=== PATIENT | female | born 1985 | race Two or more races ===

== ENCOUNTER 2017-03-04 08:10 | Day surgery (SDC) | payer MEDICAID, SELFPAY ==
[2017-03-04] MEDS ORDERED: Sodium Chloride 0.9% 10 ML Syringe FLUSH PRN (08:15)
[2017-03-04] MEDS ORDERED: Lactated Ringers 1,000 ML IV SCH (08:15)
[2017-03-04] MEDS ORDERED: Lidocaine 2% 100 MG/5 ML Syringe IVPUSH ONE (09:30)
[2017-03-04] MEDS ORDERED: Lactated Ringers 1,000 ML IV ONE (09:30)
[2017-03-04] MEDS ORDERED: Propofol 200 MG/20 ML SDV IV ONE (09:30)
[2017-03-04] MEDS ORDERED: Midazolam 1 MG/ML 2 ML SDV IV ONE (09:30)
--- NOTE | 2017-03-04 10:05 | PCM.OPNOTE ---
- General Post-Op/Procedure Note Date of Surgery/Procedure: 03/04/17 Operative Procedure(s): egd with bx Findings: gastritis esophagitis hiatal hernia Pre Op Diagnosis: epigastric pain hx of H pylori Post-Op Diagnosis: gastritis. esophagitis Anesthesia Technique: CHRISTIANO Primary Surgeon: Kev Rogers Anesthesia Provider: Frank Stokes Pathology: stomach and esophagus Complications: None Condition: Good Free Text/Narrative:: see dictation
[2017-03-04 10:56] VITALS: BP 137/97
--- NOTE | 2017-03-04 13:35 | OR ---
DATE OF OPERATION: 03/04/2017 SURGEON: Kev Rogers MD PROCEDURE PERFORMED: Esophagogastroduodenoscopy with cold forceps biopsy. PREOPERATIVE DIAGNOSIS: Epigastric pain, history of Helicobacter pylori infection. POSTOPERATIVE DIAGNOSIS: Esophagitis, hiatal hernia, and gastritis. INDICATIONS FOR PROCEDURE: This is a 31-year-old white female, who was referred with a history of epigastric discomfort. She has been recently treated for Helicobacter pylori. Pain has persisted. She is wondering if this is cleared. DESCRIPTION OF OPERATION: After an excellent IV sedation was administered, the bite block was inserted. The flexible endoscope was passed without difficulty down the patient's esophagus into the stomach. Stomach was insufflated. Scope was passed through the pylorus to the second portion of the duodenum and slowly withdrawn. The following findings were noted. Duodenum was unremarkable. Stomach; small hiatal hernia, mild gastritis, biopsies were taken. Distal esophagus, mild erythema, biopsies were taken. The remainder of the esophageal exam was unremarkable. Stomach was deflated, scope was removed. The patient tolerated the procedure well, and was taken to recovery room in good condition. /[id number] /VINICIOL
== END 2017-03-04 11:40 | disposition home or self-care (01) ==
LOC: FB.SDS 08:10
PROVIDERS: ATTEND Surgery
DX: K20.9 Esophagitis, unspecified (principal); K29.70 Gastritis, unspecified, without bleeding; E11.9 Type 2 diabetes mellitus without complications; E66.9 Obesity, unspecified; Z68.30 Body mass index [BMI] 30.0-30.9, adult; E78.5 Hyperlipidemia, unspecified; J45.909 Unspecified asthma, uncomplicated; G47.33 Obstructive sleep apnea (adult) (pediatric); Z86.19 Personal history of other infectious and parasitic diseases
CPT/HCPCS: 43239; 82962; 88305; 88313; 88342; J2250; J2704; J7120

== ENCOUNTER 2021-03-10 20:43 | Emergency (ER) | payer MEDICAID ==
[2021-03-10] MEDS ORDERED: Ondansetron 4 MG Tab.DIS PO ONE (20:44)
[2021-03-10 21:06] VITALS: PULSE 97
--- NOTE | 2021-03-10 21:21 | EDM.PDOC ---
ED HPI GENERAL MEDICAL PROBLEM - General Chief Complaint: Gastrointestinal Problem Stated Complaint: VOMITING Time Seen by Provider: 03/10/21 21:05 Source of Information: Reports: Patient History Limitations: Reports: No Limitations - History of Present Illness INITIAL COMMENTS - FREE TEXT/NARRATIVE: Patient presented to the ED because of N/V/D for 3 days. She has been having c hronic diarrhea ever since she was on Metformin 1gm BID 14 years ago. denies any abdominal pain except for bloating. there is no fever/chills,cough/cold - Related Data Allergies Allergy/AdvReac Type Severity Reaction Status Date / Time Iodinated Contrast Media AdvReac Mild Nausea and Verified 03/10/21 21:08 Vomiting ENVIRONMENTAL Allergy Mild Respiratory Uncoded 03/10/21 21:09 Problems Home Meds: Home Meds metFORMIN [Glucophage XR] 500 mg PO DAILY 01/20/14 [History] Albuterol Sulfate [Albuterol Sulfate HFA] 2 puff IH Q6HR PRN 10/22/14 [History] Venlafaxine [Effexor XR] 150 mg PO DAILY 03/03/17 [History] ARIPiprazole [Abilify] 20 mg PO DAILY 03/10/21 [History] Aspirin [Halfprin] 81 mg PO DAILY 03/10/21 [History] Dapagliflozin Propanediol [Farxiga] 5 mg PO DAILY 03/10/21 [History] Ezetimibe [Zetia] 10 mg PO DAILY 03/10/21 [History] Fenofibrate,Micronized [Fenofibrate] 200 mg PO DAILY 03/10/21 [History] Liraglutide [Victoza 3-Juan] 4.8 mg SQ DAILY 03/10/21 [History] Metoprolol Succinate [Toprol XL] 25 mg PO DAILY 03/10/21 [History] Rosuvastatin [Crestor] 5 mg PO DAILY 03/10/21 [History] hydrOXYzine pamoate [Vistaril] 25 mg PO Q6H #90 cap 03/10/21 [Rx] lisinopriL [Lisinopril] 20 mg PO DAILY 03/10/21 [History] Past Medical History Cardiovascular History: Reports: High Cholesterol Respiratory History: Reports: Asthma Gastrointestinal History: Reports: GERD, Other (See Below) Other Gastrointestinal History: HX OF H-PYLORI BEEF GRADER History: Reports: Polycystic Ovaries, Other (See Below) Other BEEF GRADER History: CERVICITIS, ENDOCERVICITIS, OVARIAN CYST Psychiatric History: Reports: Depression Endocrine/Metabolic History: Reports: Diabetes, Type II, Obesity/BMI 30+ - Past Surgical History Female Surgical History: Reports: D&C, Hysterectomy, Salpingo-Oophorectomy Social & Family History - Family History Family Medical History: No Pertinent Family History - Caffeine Use Caffeine Use: Reports: Soda ED ROS GENERAL - Review of Systems Review Of Systems: See Below Constitutional: Reports: No Symptoms HEENT: Reports: No Symptoms Respiratory: Reports: No Symptoms Cardiovascular: Reports: No Symptoms Endocrine: Reports: No Symptoms GI/Abdominal: Reports: Diarrhea, Nausea, Vomiting : Reports: No Symptoms Musculoskeletal: Reports: No Symptoms, Neck Pain, Shoulder Pain Skin: Reports: No Symptoms, Cyanosis, Jaundice Neurological: Reports: No Symptoms Psychiatric: Reports: No Symptoms ED EXAM, GI/ABD - Physical Exam Exam: See Below Exam Limited By: No Limitations General Appearance: Alert, No Apparent Distress Ears: Normal External Exam, Normal Canal, Hearing Grossly Normal Nose: Normal Inspection, Normal Mucosa, No Blood Throat/Mouth: Normal Inspection, Normal Lips, Normal Teeth Head: Atraumatic, Normocephalic Neck: Normal Inspection, Supple, Non-Tender, Full Range of Motion Respiratory/Chest: No Respiratory Distress, Lungs Clear, Normal Breath Sounds Cardiovascular: Normal Peripheral Pulses, Regular Rate, Rhythm, No Edema GI/Abdominal Exam: Soft, Non-Tender, Other (hyperactibe BS) Back Exam: Normal Inspection, Full Range of Motion Extremities: Normal Inspection, Normal Range of Motion Course - Vital Signs Last Recorded V/S: Last Vital Signs Temp 36.8 C 03/10/21 21:00 Pulse 97 03/10/21 21:30 Resp 18 03/10/21 21:30 BP 149/101 H 03/10/21 21:30 Pulse Ox 98 03/10/21 21:30 - Orders/Labs/Meds Meds: Medications Discontinued Medications Generic Name Dose Route Start Last Admin Trade Name Freq PRN Reason Stop Dose Admin Ondansetron HCl 16 mg 03/10/21 20:44 Ondansetron 4 Mg Tab.Dis PO 03/10/21 20:45 .STK-MED ONE Departure - Departure Time of Disposition: 21:20 Disposition: Home, Self-Care 01 Condition: Good Clinical Impression: Nausea & vomiting, Chronic diarrhea - Discharge Information Prescriptions: hydrOXYzine pamoate [Vistaril] 25 mg PO Q6H #90 cap Instructions: Nausea and Vomiting, Adult, [id number], Chronic Diarrhea Referrals: Jailyn Williamson ADVICE CLERK [Primary Care Provider] - Forms: ED Department Discharge Additional Instructions: Please read discharge instructions on nausea/vomiting/diarrhea Zofran ODT 4 mg every 4 hours as needed for nausea Hydroxyzine 25 mg ,1-2 tablets every 6 hours as needed for nausea/anxiety and sleep Follow up as needed Sepsis Event Note (ED) - Evaluation Sepsis Screening Result: No Definite Risk
[2021-03-10 23:01] VITALS: BP 149/101
== END 2021-03-10 21:35 | disposition home or self-care (01) ==
LOC: FB.ED 20:43
DX: K52.9 Noninfective gastroenteritis and colitis, unspecified (principal); R11.2 Nausea with vomiting, unspecified; E78.00 Pure hypercholesterolemia, unspecified; K21.9 Gastro-esophageal reflux disease without esophagitis; E11.9 Type 2 diabetes mellitus without complications; E66.9 Obesity, unspecified; Z68.30 Body mass index [BMI] 30.0-30.9, adult; Z79.82 Long term (current) use of aspirin; Z79.899 Other long term (current) drug therapy; Z91.048 Other nonmedicinal substance allergy status; Z91.041 Radiographic dye allergy status
CPT/HCPCS: 99283; A9270-GY

== ENCOUNTER 2021-10-07 20:48 | Emergency (ER) | payer MEDICAID ==
[2021-10-07 21:00] VITALS: BP 173/104; PULSE 88
== END 2021-10-07 23:07 | disposition home or self-care (01) ==
LOC: FB.ED 20:48
DX: F32.A Depression, unspecified (principal); E78.00 Pure hypercholesterolemia, unspecified; I10 Essential (primary) hypertension; E11.9 Type 2 diabetes mellitus without complications; E66.9 Obesity, unspecified; Z68.35 Body mass index [BMI] 35.0-35.9, adult; Z91.041 Radiographic dye allergy status; Z91.09 Other allergy status, other than to drugs and biological substances; Z79.899 Other long term (current) drug therapy; Z79.82 Long term (current) use of aspirin
CPT/HCPCS: 99283

== ENCOUNTER 2022-02-22 11:06 | Emergency (ER) | payer MEDICAID ==
[2022-02-22 14:30] VITALS: BP 138/95; PULSE 85
== END 2022-02-22 13:15 | disposition home or self-care (01) ==
LOC: FB.ED 11:06
DX: F33.1 Major depressive disorder, recurrent, moderate (principal); R45.851 Suicidal ideations; K21.9 Gastro-esophageal reflux disease without esophagitis; E78.00 Pure hypercholesterolemia, unspecified; I10 Essential (primary) hypertension; E11.9 Type 2 diabetes mellitus without complications; E66.9 Obesity, unspecified; Z91.041 Radiographic dye allergy status; Z86.16 Personal history of COVID-19; Z79.899 Other long term (current) drug therapy; Z79.82 Long term (current) use of aspirin; Z91.19 Patient's noncompliance with other medical treatment and regimen; Z68.35 Body mass index [BMI] 35.0-35.9, adult; Z91.09 Other allergy status, other than to drugs and biological substances
CPT/HCPCS: 36415; 80307; 81001; 99283; 99284

== ENCOUNTER 2022-04-21 16:28 | Emergency (ER) | payer MEDICAID ==
[2022-04-21] MEDS ORDERED: Sodium Chloride 0.9% 1,000 ML IV SCH (17:00)
[2022-04-21] MEDS ORDERED: Ondansetron 4 MG/2 ML SDV IVPUSH ONE (17:04)
[2022-04-21 17:07] LABS: ESTIMATED GFR 49 mL/min (>60)
[2022-04-21 19:41] VITALS: BP 114/75; PULSE 99
== END 2022-04-21 19:20 | disposition home or self-care (01) ==
LOC: FB.ED 16:28
DX: E86.0 Dehydration (principal); I10 Essential (primary) hypertension; E11.9 Type 2 diabetes mellitus without complications; E78.00 Pure hypercholesterolemia, unspecified; E66.9 Obesity, unspecified; Z68.34 Body mass index [BMI] 34.0-34.9, adult; Z88.6 Allergy status to analgesic agent; Z20.822 Contact with and (suspected) exposure to COVID-19; Z91.048 Other nonmedicinal substance allergy status; Z79.899 Other long term (current) drug therapy
CPT/HCPCS: 36415; 70450; 80053; 82947; 85025; 87635; 93005; 96361; 96374; 99284; J2405; J7030; 93010; U0002

== ENCOUNTER 2022-08-14 02:50 | Emergency (ER) | payer MEDICAID ==
[2022-08-14 03:30] VITALS: BP 105/70; PULSE 74
[2022-08-14] MEDS ORDERED: Ondansetron 4 MG Tab.DIS PO ONE (03:36)
[2022-08-14] MEDS ORDERED: Lactated Ringers 1,000 ML IV ONE (03:36)
[2022-08-14 03:56] LABS: ESTIMATED GFR 73 mL/min (>60)
[2022-08-14 04:03] LABS: HEMOGLOBIN A1C 6.5 % (<5.7)
== END 2022-08-14 05:38 | disposition home or self-care (01) ==
LOC: FB.ED 02:50
DX: I95.1 Orthostatic hypotension (principal); E11.65 Type 2 diabetes mellitus with hyperglycemia; E78.00 Pure hypercholesterolemia, unspecified; I10 Essential (primary) hypertension; E66.9 Obesity, unspecified; Z68.33 Body mass index [BMI] 33.0-33.9, adult; Z91.041 Radiographic dye allergy status; Z88.5 Allergy status to narcotic agent; Z79.82 Long term (current) use of aspirin; Z79.899 Other long term (current) drug therapy
CPT/HCPCS: 36415; 80048; 81001; 83036; 84484; 85027; 96365; 96366; 99284; J7120; Q0162

== ENCOUNTER 2022-08-23 22:24 | Emergency (ER) | payer MEDICAID ==
[2022-08-23] MEDS ORDERED: Sulfamethoxazole/Trimethoprim 800-160 MG Tab PO ONE (22:25)
[2022-08-24 01:38] VITALS: BP 148/90; PULSE 88
== END 2022-08-23 23:27 | disposition home or self-care (01) ==
LOC: FB.ED 22:24
DX: N39.0 Urinary tract infection, site not specified (principal); E78.00 Pure hypercholesterolemia, unspecified; I10 Essential (primary) hypertension; K21.9 Gastro-esophageal reflux disease without esophagitis; E11.9 Type 2 diabetes mellitus without complications; E66.9 Obesity, unspecified; Z68.33 Body mass index [BMI] 33.0-33.9, adult; Z88.5 Allergy status to narcotic agent; Z91.041 Radiographic dye allergy status; Z79.84 Long term (current) use of oral hypoglycemic drugs; Z79.82 Long term (current) use of aspirin; Z79.899 Other long term (current) drug therapy; Z86.16 Personal history of COVID-19
CPT/HCPCS: 81001; 87086; 87088; 99283; A9270; 87186

== ENCOUNTER 2023-02-27 22:39 | Emergency (ER) | payer MEDICAID ==
[2023-02-27] MEDS ORDERED: valACYclovir 500 MG Tab PO ONE (23:17)
[2023-02-28 01:20] VITALS: BP 158/94; PULSE 89
== END 2023-02-27 23:42 | disposition home or self-care (01) ==
LOC: FB.ED 22:39
DX: B02.22 Postherpetic trigeminal neuralgia (principal); E78.00 Pure hypercholesterolemia, unspecified; I10 Essential (primary) hypertension; J45.909 Unspecified asthma, uncomplicated; E11.9 Type 2 diabetes mellitus without complications; E66.9 Obesity, unspecified; Z86.16 Personal history of COVID-19; Z72.0 Tobacco use; Z88.5 Allergy status to narcotic agent; Z91.041 Radiographic dye allergy status; Z91.048 Other nonmedicinal substance allergy status; Z79.899 Other long term (current) drug therapy; Z79.82 Long term (current) use of aspirin; Z79.84 Long term (current) use of oral hypoglycemic drugs
CPT/HCPCS: 99282; A9270

== ENCOUNTER 2023-06-15 05:05 | Emergency (ER) | payer MEDICAID ==
[2023-06-15] MEDS ORDERED: hydrOXYzine HCl 50 MG/ML SDV IM ONE (05:22)
[2023-06-15] MEDS ORDERED: Morphine 10 MG/ML SDV IM ONE (05:22)
[2023-06-15 05:44] LABS: BASOPHILS ABSOLUTE AUTO 0.1 x10-3/uL (0.0-0.1); BASOPHILS PERCENT AUTO 0.6 % (0.2-1.5); EOSINOPHILS ABSOLUTE AUTO 0.3 x10-3/uL (0.0-0.8); EOSINOPHILS PERCENT AUTO 2.5 % (0.6-8.1); HEMATOCRIT 40.7 % (34.2-48.2); HEMOGLOBIN 14.1 g/dL (11.4-15.5); LYMPHOCYTES ABSOLUTE AUTO 2.5 x10-3/uL (1.0-4.4); LYMPHOCYTES PERCENT AUTO 23.7 % (18.4-52.1); MEAN CORPUSCULAR HEMOGLOBIN 31.7 pg (23.9-33.9); MEAN CORPUSCULAR HGB CONC 34.8 g/dL (31.9-34.8); MEAN CORPUSCULAR VOLUME 91.1 fL (76.7-100.5); MEAN PLATELET VOLUME 7.8 fL (7.1-12.4); MONOCYTES ABSOLUTE AUTO 0.5 x10-3/uL (0.3-1.0); MONOCYTES PERCENT AUTO 4.7 % (4.4-15.7); NEUTROPHILS ABSOLUTE AUTO 7.2 x10-3/uL (1.5-6.3); NEUTROPHILS PERCENT AUTO 68.5 % (30.8-76.2); PLATELET COUNT,PLT 311 x10(3)uL (151-488); RED BLOOD CELL COUNT 4.46 x10(6)uL (3.60-5.20); RED CELL DISTRIBUTION WIDTH 14.5 % (12.3-16.5); WHITE BLOOD CELL COUNT,WBC 10.5 x10-3/uL (3.0-10.3)
[2023-06-15 05:46] VITALS: BP 147/97; PULSE 86
[2023-06-15 05:52] LABS: BLOOD UREA NITROGEN,BUN 8 mg/dL (7-18); BUN/CREATININE RATIO 11.4 (9-20); CALCIUM 9.3 mg/dL (8.6-10.2); CARBON DIOXIDE,CO2 27 mmol/L (21-32); CHLORIDE,CL 103 mmol/L (100-110); CREATININE 0.7 mg/dL (0.55-1.02); EST CRCL DRUG DOSING (CG) 80.61 mL/min; ESTIMATED GFR 112 mL/min (>60); GLUCOSE RANDOM 108 mg/dL (80-116); POTASSIUM,K 3.7 mmol/L (3.5-5.3); SODIUM,NA 137 mmol/L (135-145)
[2023-06-15 05:57] LABS: HEMOGLOBIN A1C 6.2 % (<5.7)
[2023-06-15 06:04] LABS: A/G RATIO 0.8; ALANINE AMINOTRANSFERASE,ALT 28 U/L (12-36); ALBUMIN 3.6 g/dL (3.5-5.2); ALKALINE PHOSPHATASE 105 IU/L (56-112); ASPARTATE AMNIOTRANSFERASE,AST 19 IU/L (5-25); BILIRUBIN TOTAL 0.7 mg/dL (0.1-1.3); PROTEIN TOTAL,TP 7.9 g/dL (6.0-8.0)
== END 2023-06-15 05:46 | disposition home or self-care (01) ==
LOC: FB.ED 05:05
DX: M54.32 Sciatica, left side (principal); I10 Essential (primary) hypertension; E78.00 Pure hypercholesterolemia, unspecified; J45.909 Unspecified asthma, uncomplicated; E11.9 Type 2 diabetes mellitus without complications; E66.9 Obesity, unspecified; Z68.31 Body mass index [BMI] 31.0-31.9, adult; Z86.16 Personal history of COVID-19; Z88.5 Allergy status to narcotic agent; Z91.041 Radiographic dye allergy status; Z91.048 Other nonmedicinal substance allergy status; Z79.84 Long term (current) use of oral hypoglycemic drugs; Z79.82 Long term (current) use of aspirin; Z79.899 Other long term (current) drug therapy
CPT/HCPCS: 36415; 80053; 83036; 85025; 85379; 86140; 96372; 99283; J2270; J3410

== ENCOUNTER 2023-09-24 12:09 | Emergency (ER) | payer MEDICAID, OTHER ==
[2023-09-24] MEDS ORDERED: Ketorolac 30 MG/ML SDV IM ONE (12:36)
[2023-09-24] MEDS ORDERED: Cyclobenzaprine 10 MG Tab PO ONE (12:36)
[2023-09-24 14:55] VITALS: BP 144/99; PULSE 75
== END 2023-09-24 13:30 | disposition home or self-care (01) ==
LOC: FB.ED 12:09
DX: S39.012A Strain of muscle, fascia and tendon of lower back, initial encounter (principal); E78.00 Pure hypercholesterolemia, unspecified; I10 Essential (primary) hypertension; K21.9 Gastro-esophageal reflux disease without esophagitis; E11.9 Type 2 diabetes mellitus without complications; E66.9 Obesity, unspecified; Z86.16 Personal history of COVID-19; Z68.31 Body mass index [BMI] 31.0-31.9, adult; Z79.82 Long term (current) use of aspirin; Z79.899 Other long term (current) drug therapy; Z88.5 Allergy status to narcotic agent
CPT/HCPCS: 96372; 99283; A9270; J1885

== ENCOUNTER 2023-10-15 01:24 | Emergency (ER) | payer OTHER ==
[2023-10-15 02:35] LABS: BASOPHILS ABSOLUTE AUTO 0.1 x10-3/uL (0.0-0.1); BASOPHILS PERCENT AUTO 0.8 % (0.2-1.5); EOSINOPHILS ABSOLUTE AUTO 0.4 x10-3/uL (0.0-0.8); EOSINOPHILS PERCENT AUTO 4.3 % (0.6-8.1); HEMATOCRIT 38.6 % (34.2-48.2); HEMOGLOBIN 13.2 g/dL (11.4-15.5); LYMPHOCYTES ABSOLUTE AUTO 2.6 x10-3/uL (1.0-4.4); LYMPHOCYTES PERCENT AUTO 30.3 % (18.4-52.1); MEAN CORPUSCULAR HEMOGLOBIN 30.8 pg (23.9-33.9); MEAN CORPUSCULAR HGB CONC 34.1 g/dL (31.9-34.8); MEAN CORPUSCULAR VOLUME 90.5 fL (76.7-100.5); MEAN PLATELET VOLUME 7.5 fL (7.1-12.4); MONOCYTES ABSOLUTE AUTO 0.6 x10-3/uL (0.3-1.0); MONOCYTES PERCENT AUTO 7.4 % (4.4-15.7); NEUTROPHILS ABSOLUTE AUTO 4.8 x10-3/uL (1.5-6.3); NEUTROPHILS PERCENT AUTO 57.2 % (30.8-76.2); PLATELET COUNT,PLT 332 x10(3)uL (151-488); RED BLOOD CELL COUNT 4.27 x10(6)uL (3.60-5.20); RED CELL DISTRIBUTION WIDTH 14.1 % (12.3-16.5); WHITE BLOOD CELL COUNT,WBC 8.4 x10-3/uL (3.0-10.3)
[2023-10-15 02:40] LABS: BLOOD UREA NITROGEN,BUN 10 mg/dL (7-18); BUN/CREATININE RATIO 14.3 (9-20); CALCIUM 9.2 mg/dL (8.6-10.2); CARBON DIOXIDE,CO2 28 mmol/L (21-32); CHLORIDE,CL 102 mmol/L (100-110); CREATININE 0.7 mg/dL (0.55-1.02); ESTIMATED GFR 112 mL/min (>60); GLUCOSE RANDOM 147 mg/dL (80-116); POTASSIUM,K 3.6 mmol/L (3.5-5.3); SODIUM,NA 138 mmol/L (135-145)
[2023-10-15 03:15] LABS: INFLUENZA A NAA NEGATIVE (NEGATIVE); INFLUENZA B NAA NEGATIVE (NEGATIVE); RESPIRATORY SYNCYTIAL VIR NAA NEGATIVE (NEGATIVE)
[2023-10-15 03:21] LABS: CORONAVIRUS COVID-19 NAA NEGATIVE (NEGATIVE)
[2023-10-15 07:57] VITALS: BP 140/101; PULSE 100
== END 2023-10-15 04:40 | disposition home or self-care (01) ==
LOC: FB.ED 01:24
DX: J45.901 Unspecified asthma with (acute) exacerbation (principal); R79.82 Elevated C-reactive protein (CRP); I10 Essential (primary) hypertension; E78.00 Pure hypercholesterolemia, unspecified; E11.9 Type 2 diabetes mellitus without complications; Z86.16 Personal history of COVID-19; Z79.82 Long term (current) use of aspirin; Z79.84 Long term (current) use of oral hypoglycemic drugs; Z88.5 Allergy status to narcotic agent; Z91.048 Other nonmedicinal substance allergy status; Z91.041 Radiographic dye allergy status
CPT/HCPCS: 0241U; 36415; 71046; 80048; 85025; 86140; 99283; 99284

== ENCOUNTER 2024-01-17 23:39 | Emergency (ER) | payer OTHER ==
[2024-01-18] MEDS: Acetaminophen/oxyCODONE 325-5 MG Tab PO STA (00:17)
[2024-01-18] MEDS: Ketorolac 30 MG/ML SDV IM ONE (00:21)
[2024-01-18] MEDS: Cyclobenzaprine 10 MG Tab PO STA (00:21)
[2024-01-18] MEDS: traMADol 50 MG Tab PO STA (00:40)
[2024-01-18 01:03] VITALS: BP 137/95; PULSE 97
== END 2024-01-18 00:45 | disposition home or self-care (01) ==
LOC: FB.ED 23:39
DX: M54.16 Radiculopathy, lumbar region (principal); E78.00 Pure hypercholesterolemia, unspecified; I10 Essential (primary) hypertension; J45.909 Unspecified asthma, uncomplicated; K21.9 Gastro-esophageal reflux disease without esophagitis; E11.9 Type 2 diabetes mellitus without complications; E66.9 Obesity, unspecified; Z88.5 Allergy status to narcotic agent; Z91.041 Radiographic dye allergy status; Z88.8 Allergy status to other drugs, medicaments and biological substances; Z86.19 Personal history of other infectious and parasitic diseases; Z90.49 Acquired absence of other specified parts of digestive tract; Z79.899 Other long term (current) drug therapy; Z68.32 Body mass index [BMI] 32.0-32.9, adult
CPT/HCPCS: 96372; 99283; 99284; A9270-GY; J1885

== ENCOUNTER 2024-02-04 00:20 | Emergency (ER) | payer OTHER ==
[2024-02-04 00:41] VITALS: BP 151/92; PULSE 100
== END 2024-02-04 01:49 | disposition home or self-care (01) ==
LOC: FB.ED 00:20
DX: S43.402A Unspecified sprain of left shoulder joint, initial encounter (principal); E11.9 Type 2 diabetes mellitus without complications; E78.00 Pure hypercholesterolemia, unspecified; I10 Essential (primary) hypertension; J45.909 Unspecified asthma, uncomplicated; K21.9 Gastro-esophageal reflux disease without esophagitis; Z88.5 Allergy status to narcotic agent; Z91.041 Radiographic dye allergy status; Z88.8 Allergy status to other drugs, medicaments and biological substances; Z79.84 Long term (current) use of oral hypoglycemic drugs; Z79.899 Other long term (current) drug therapy; Z79.82 Long term (current) use of aspirin; Z79.51 Long term (current) use of inhaled steroids; Z86.16 Personal history of COVID-19; Z90.49 Acquired absence of other specified parts of digestive tract; W19.XXXA Unspecified fall, initial encounter
CPT/HCPCS: 73030-LT; 99283

== ENCOUNTER 2024-03-17 22:51 | Emergency (ER) | payer OTHER ==
[2024-03-17] MEDS ORDERED: Sulfamethoxazole/Trimethoprim 800-160 MG Tab PO ONE (22:52)
[2024-03-17 23:08] VITALS: BP 136/87; PULSE 99
== END 2024-03-17 23:27 | disposition home or self-care (01) ==
LOC: FB.ED 22:51
DX: S30.1XXA Contusion of abdominal wall, initial encounter (principal); I10 Essential (primary) hypertension; E78.00 Pure hypercholesterolemia, unspecified; K21.9 Gastro-esophageal reflux disease without esophagitis; E11.9 Type 2 diabetes mellitus without complications; E66.9 Obesity, unspecified; Z86.16 Personal history of COVID-19; Z90.49 Acquired absence of other specified parts of digestive tract; Z90.710 Acquired absence of both cervix and uterus; Z79.84 Long term (current) use of oral hypoglycemic drugs; Z79.899 Other long term (current) drug therapy; Z79.82 Long term (current) use of aspirin; Z88.5 Allergy status to narcotic agent; Z91.041 Radiographic dye allergy status; Z88.8 Allergy status to other drugs, medicaments and biological substances; Z91.09 Other allergy status, other than to drugs and biological substances; W22.03XA Walked into furniture, initial encounter
CPT/HCPCS: 99283; A9270-GY

== ENCOUNTER 2024-06-19 23:37 | Emergency (ER) | payer OTHER ==
[2024-06-20] MEDS: traMADol 50 MG Tab PO ONE (00:19)
[2024-06-20 00:23] VITALS: BP 168/88; PULSE 78
== END 2024-06-20 00:23 | disposition home or self-care (01) ==
LOC: FB.ED 23:37
DX: S46.912A Strain of unspecified muscle, fascia and tendon at shoulder and upper arm level, left arm, initial encounter (principal); E78.00 Pure hypercholesterolemia, unspecified; I10 Essential (primary) hypertension; J45.909 Unspecified asthma, uncomplicated; K21.9 Gastro-esophageal reflux disease without esophagitis; E11.9 Type 2 diabetes mellitus without complications; Z86.16 Personal history of COVID-19; Z90.49 Acquired absence of other specified parts of digestive tract; Z90.710 Acquired absence of both cervix and uterus; Z79.84 Long term (current) use of oral hypoglycemic drugs; Z79.82 Long term (current) use of aspirin; Z79.899 Other long term (current) drug therapy; Z88.5 Allergy status to narcotic agent; Z88.9 Allergy status to unspecified drugs, medicaments and biological substances; Z91.041 Radiographic dye allergy status; Z91.048 Other nonmedicinal substance allergy status; X50.1XXA Overexertion from prolonged static or awkward postures, initial encounter
CPT/HCPCS: 99283; A9270

== ENCOUNTER 2024-07-25 22:57 | Emergency (ER) | payer OTHER ==
[2024-07-25 23:14] VITALS: BP 141/98; PULSE 96
== END 2024-07-25 23:47 | disposition home or self-care (01) ==
LOC: FB.ED 22:57
DX: S62.652A Nondisplaced fracture of middle phalanx of right middle finger, initial encounter for closed fracture (principal); I10 Essential (primary) hypertension; E78.00 Pure hypercholesterolemia, unspecified; J45.909 Unspecified asthma, uncomplicated; E11.9 Type 2 diabetes mellitus without complications; E66.9 Obesity, unspecified; Z86.16 Personal history of COVID-19; Z90.49 Acquired absence of other specified parts of digestive tract; Z90.710 Acquired absence of both cervix and uterus; Z88.5 Allergy status to narcotic agent; Z88.8 Allergy status to other drugs, medicaments and biological substances; Z91.048 Other nonmedicinal substance allergy status; Z91.041 Radiographic dye allergy status; Z79.51 Long term (current) use of inhaled steroids; Z79.52 Long term (current) use of systemic steroids; Z79.82 Long term (current) use of aspirin; Z79.84 Long term (current) use of oral hypoglycemic drugs; Z79.899 Other long term (current) drug therapy; W23.0XXA Caught, crushed, jammed, or pinched between moving objects, initial encounter
CPT/HCPCS: 73130-RT; 99283

== ENCOUNTER 2024-10-02 20:03 | Emergency (ER) | payer SELFPAY ==
[2024-10-02 20:44] VITALS: BP 149/107; PULSE 94
[2024-10-02] MEDS: Azithromycin 500 MG Tab PO ONE (20:51)
== END 2024-10-02 20:53 | disposition home or self-care (01) ==
LOC: FB.ED 20:03
DX: J20.9 Acute bronchitis, unspecified (principal); I10 Essential (primary) hypertension; E78.00 Pure hypercholesterolemia, unspecified; K21.9 Gastro-esophageal reflux disease without esophagitis; E11.9 Type 2 diabetes mellitus without complications; Z88.5 Allergy status to narcotic agent; Z91.041 Radiographic dye allergy status; Z91.09 Other allergy status, other than to drugs and biological substances; Z79.84 Long term (current) use of oral hypoglycemic drugs; Z79.899 Other long term (current) drug therapy; Z86.16 Personal history of COVID-19; Z90.49 Acquired absence of other specified parts of digestive tract; Z90.710 Acquired absence of both cervix and uterus
CPT/HCPCS: 99283; A9270-GY